=== PATIENT | male | born 1980 | race Caucasian/White ===

== ENCOUNTER 2020-01-30 09:20 | Emergency (ER) | payer OTHER ==
[~2020-01-30] VITALS: Ht 185.4 cm; Wt 81.6 kg
== END 2020-01-30 14:30 | disposition home or self-care (01) ==
LOC: ER 09:20
DX: U07.1 COVID-19 (principal); R06.02 Shortness of breath; Z03.818 Encounter for observation for suspected exposure to other biological agents ruled out

== ENCOUNTER 2020-02-02 12:03 | Emergency (ER) | payer OTHER ==
[~2020-02-02] VITALS: Ht 185.4 cm; Wt 81.6 kg
== END 2020-02-02 13:12 | disposition home or self-care (01) ==
LOC: ER 12:03
DX: R51 Headache (principal); F41.8 Other specified anxiety disorders

== ENCOUNTER 2020-02-09 13:01 | Emergency (ER) | payer OTHER ==
[~2020-02-09] VITALS: Ht 185.4 cm; Wt 81.6 kg
== END 2020-02-09 16:33 | disposition home or self-care (01) ==
LOC: ER 13:01
DX: G44.89 Other headache syndrome (principal); Z20.828 Contact with and (suspected) exposure to other viral communicable diseases